=== PATIENT | male | born 1940 | race Caucasian/White ===

== ENCOUNTER → 2020-02-24 | Outpatient (CLI) | payer MEDICARE ==
--- NOTE | 2020-02-24 15:47 | NM ---
EXAMINATION TYPE: NM bone scan whole body DATE OF EXAM: 02/24/2020 COMPARISON: NONE HISTORY: 79-year-old male with history of prostate cancer, C61, follow-up staging TECHNIQUE: Delayed whole-body scanning was performed following the injection of 20.4 mCi Tc 99m MDP. Images acquired 3 hours post injection. FINDINGS: Valenzuela catheter is seen in place with excreted activity along the catheter. Degenerative tracer activi ty noted along the posterior elements at the thoracolumbar junction and upper lumbar spine. Some dege nerative tracer activity at the wrist. No suspicious distribution of activity to suggest osseous meta static disease. IMPRESSION: Some degenerative tracer activity at the thoracolumbar junction and upper lumbar spine. No scintigrap hic evidence for osseous metastatic disease.
== END | disposition home or self-care (01) ==
LOC: RADNMMAIN 10:16
PROVIDERS: ATTEND Urology
DX: M51.36 Other intervertebral disc degeneration, lumbar region (principal); C61 Malignant neoplasm of prostate; Z88.0 Allergy status to penicillin
CPT/HCPCS: 78306; A9503

== ENCOUNTER → 2020-09-21 | Outpatient (CLI) | payer MEDICARE ==
--- NOTE | 2020-09-21 14:46 | NM ---
EXAMINATION TYPE: NM bone scan whole body DATE OF EXAM: 09/21/2020 COMPARISON: NONE HISTORY: Prostate cancer Delayed whole-body scanning was performed following the injection of 24.7 mCi Tc 99m MDP. Images wer e acquired 3.25 hours post injection. FINDINGS: There are multiple scattered hyperintense areas scattered within the bilateral ribs. More elongated u ptake is evident in the region of the lateral right sixth rib within the anterior eighth rib. Finding s can be compatible with metastatic disease There is focal uptake in the region of T12. Milder uptake within pedicles is within the T11 and L1 an d on the left at L2. Findings can be compatible with metastatic disease. COMPARISON: 02/24/2020. Uptake within the thoracolumbar region has increased significantly over the in terval. Uptake within the ribs appears markedly increased in IMPRESSION: 1. New and increasing foci of uptake within the bilateral ribs and thoracolumbar region suspicious fo r developing metastasis.
== END | disposition home or self-care (01) ==
LOC: RADNMMAIN 09:48
PROVIDERS: ATTEND Urology
DX: R94.8 Abnormal results of function studies of other organs and systems (principal); C61 Malignant neoplasm of prostate; Z88.0 Allergy status to penicillin
CPT/HCPCS: 78306; A9503

== ENCOUNTER 2020-10-05 13:11 | Inpatient (IN) | payer MEDICARE ==
[2020-10-05] MEDS ORDERED: HYDROmorphone 2 MG/ML 1 ML SYRINGE IVP PRN (16:54)
[2020-10-05] MEDS ORDERED: ACETAMINOPHEN TAB 325 MG TAB PO PRN (16:54)
[2020-10-05] MEDS ORDERED: HYDROcodone/APAP 5-325MG 1 EACH TAB PO PRN (16:54)
[2020-10-05 17:43] LABS: Basophils % (A) 0 %; Eosinophils # (A) 0.1 k/uL (0-0.7); Eosinophils % (A) 2 %; HCT 39.2 % (39.0-53.0); HGB 12.8 gm/dL (13.0-17.5); Lymphocytes # (A) 0.8 k/uL (1.0-4.8); Lymphocytes % (A) 11 %; MCH 30.8 pg (25.0-35.0); MCHC 32.7 g/dL (31.0-37.0); MCV 94.2 fL (80.0-100.0); Mean Platelet Volume 7.4; Monocytes # (A) 0.6 k/uL (0-1.0); Monocytes % (A) 8 %; Neutrophils # (A) 5.3 k/uL (1.3-7.7); Neutrophils % (A) 77 %; Platelet Count 104 k/uL (150-450); RBC 4.16 m/uL (4.30-5.90); RDW 13.5 % (11.5-15.5)
[2020-10-05] MEDS: DEXTROSE 5%-0.45% NACL 1,000 ML IV SCH (17:49)
[2020-10-05] MEDS: HYDROmorphone 1 MG/ML 1 ML SYRINGE IVP PRN (18:11)
[2020-10-05] MEDS ORDERED: HEPARIN SODIUM,PORCINE 5,000 UNIT/ML 1 ML VIAL SQ SCH (21:00)
--- NOTE | 2020-10-05 21:22 | P.GSHP ---
History of Present Illness H&P Date: 10/05/20 Chief Complaint: Weakness and pain The patient is an 80-year-old white male initially evaluated in January 2020 for urinary retention. His prostate was noted to be hard and nodular at that time. A PSA level was checked and was 4.4. He underwent a prostate ultrasound with biopsies. All biopsies showed poorly differentiated adenocarcinoma of the prostate. He was treated with total androgen blockade and had a very favorable response. The urinary retention resolved, and the PSA level decreased to 0.4 in April 2020. He was treated with radiation therapy in the fall. However, he began to experience decreased appetite and weight loss in August 2020, and the PSA level beata to 9.2. A repeat PSA level two weeks later was 22.8. A bone scan suggested the presence of metastases. The decision was made to treat him with Xtandi, and prior authorization was obtained. However, this past week he has experienced significant weakness, anorexia, and pain. - Review of Systems ROS unobtainable: Reports: due to mental status - Constitutional Constitutional: Reports weakness - Genitourinary (Male) Genitourinary: Reports dysuria Past Medical History Past Medical History: Cancer, GERD/Reflux, Hypertension, Musculoskeletal Disorder, Neurologic Disorder, Prostate Disorder, Renal Disease Additional Past Medical History / Comment(s): Pt diagnosed with prostate cancer approximately in February 2020 and completed radiation/hormone therapy/spouse states cancer has metastasized, recent (past 3 days) pt has had loss of use of his limbs/weakness and pain in abdomin and legs/pt has been unable to get out of bed past 3 days but prior was ambulating with walker and getting into wheelchair, BPH, past nephrolithiasis, leaks urine-wears depends during day and condom cath at night, past presbyesophagus with swallowing difficulty but spouse states no longer a problem and is on a regular diet, chronic low back pain, benign tremors and has been told by some physicians he has parkinson's, diabetic insipidus, past necrotizing fascitis, R lung nodule. 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 Smoking Status: Former smoker - Past Family History Father Family Medical History: Cancer, Myocardial Infarction ([place]) Additional Family Medical History / Comment(s): Prostate cancer. Mother Family Medical History: Cancer Additional Family Medical History / Comment(s): Breast cancer Brother(s) Family Medical History: No Reported History Daughter(s) Family Medical History: No Reported History Son(s) Family Medical History: No Reported History Medications and Allergies Home Medications Medication Instructions Recorded Confirmed Type Gabapentin [Neurontin] 300 mg PO BID 03/04/16 10/05/20 History Omeprazole 20 mg PO DAILY 03/04/16 10/05/20 History amLODIPine [Norvasc] 5 mg PO DAILY 03/04/16 10/05/20 History Alfuzosin HCl [Alfuzosin HCl ER] 10 mg PO HS 10/05/20 10/05/20 History Apixaban [Eliquis] 5 mg PO BID 10/05/20 10/05/20 History Bicalutamide 50 mg PO DAILY 10/05/20 10/05/20 History Escitalopram [Lexapro] 5 mg PO DAILY 10/05/20 10/05/20 History Magnesium Oxide 400 mg PO DAILY 10/05/20 10/05/20 History Mirtazapine 15 mg PO HS 10/05/20 10/05/20 History Sulfamethox-Tmp 800-160Mg [Bactrim 1 tab PO Q12HR 10/05/20 10/05/20 History DS 800-160 mg] risperiDONE 3 mg PO HS 10/05/20 10/05/20 History Allergies Allergy/AdvReac Type Severity Reaction Status Date / Time amantadine Allergy Unknown Verified 10/05/20 18:15 azithromycin [From Zithromax] Allergy Unknown Verified 10/05/20 18:15 cephalexin monohydrate Allergy Unknown Verified 10/05/20 18:15 [From Keflex] ciprofloxacin [From Cipro] Allergy Unknown Verified 10/05/20 18:15 ciprofloxacin HCl Allergy Unknown Verified 10/05/20 18:15 [From Cipro] clarithromycin [From Biaxin] Allergy Unknown Verified 10/05/20 18:15 morphine Allergy Unknown Verified 10/05/20 18:15 NSAIDS (Non-Steroidal Allergy Unknown Verified 10/05/20 18:15 Anti-Inflamma Penicillins Allergy Unknown Verified 10/05/20 18:15 Sulfa (Sulfonamide Allergy Unknown Verified 10/05/20 18:15 Antibiotics) Surgical - Exam - General well developed, well nourished, no distress - Respiratory normal respiratory effort - Abdomen Abdomen: soft, non tender, no guarding, no rigid, no rebound - Genitourinary normal penis with no external lesions, testicles non-tender - Psychiatric oriented to time, oriented to person, oriented to place, speech is normal, memory intact Results - Labs 10/05/20 17:04 Assessment and Plan (1) Malignant neoplasm of prostate Current Visit: Yes Status: Acute Code(s): C61 - MALIGNANT NEOPLASM OF PROSTATE SNOMED Code(s): 048980797 Plan: The patient will be admitted for pain management and assessment. He appears to have diminished motor strength of the left lower extremity, though it is difficult to accurately assess him. Oncology has been consulted.
[2020-10-06 02:15] LABS: African American GFR (CKD) 96.4 (60.0-200.0); Albumin 3.7 g/dL (3.80-4.90); Albumin/Globulin Ratio 1.61 (1.60-3.17); Anion Gap 24.8 mmol/L (4.00-12.00); Calcium 8.8 mg/dL (8.7-10.3); Carbon Dioxide 25.2 mmol/L (21.6-31.8); Globulin 2.3 g/dL (1.6-3.3); Non-African American GFR(CKD) 83.2 (60.0-200.0); Potassium 3.9 mmol/L (3.5-5.5); Total Bilirubin 0.6 mg/dL (0.3-1.2)
[2020-10-06 03:11] LABS: Glucose,Whole Blood 115 mg/dL (75-99)
[2020-10-06] MEDS: HYDROmorphone 1 MG/ML 1 ML SYRINGE IVP PRN ×5 (03:11→23:48)
[2020-10-06] MEDS: DEXTROSE 5%-0.45% NACL 1,000 ML IV SCH ×3 (05:54→20:46)
[2020-10-06] MEDS: APIXABAN 5 MG TAB PO SCH ×2 (08:12→20:04)
[2020-10-06] MEDS: GABAPENTIN 300 MG CAP PO SCH ×2 (08:12→20:04)
[2020-10-06] MEDS: PANTOPRAZOLE 40 MG TABLET PO SCH (08:12)
[2020-10-06] MEDS: amLODIPine 5 MG TAB PO SCH (08:12)
[2020-10-06] MEDS: MAGNESIUM OXIDE 400 MG TAB PO SCH (08:12)
[2020-10-06] MEDS: ESCITALOPRAM 5 MG TAB PO SCH (08:13)
[2020-10-06] MEDS: BICALUTAMIDE 50 MG TAB PO SCH (08:13)
[2020-10-06 10:24] LABS: African American GFR (CKD) >90 (>60 ml/min/1.73 sqM); Anion Gap 4 mmol/L; Blood Urea Nitrogen 18 mg/dL (9-20); Calcium 8.9 mg/dL (8.4-10.2); Carbon Dioxide 30 mmol/L (22-30); Chloride 101 mmol/L (98-107); Glucose 125 mg/dL (74-99); Non-African American GFR(CKD) 84 (>60 ml/min/1.73 sqM); Potassium 4.3 mmol/L (3.5-5.1); Sodium 135 mmol/L (137-145)
[2020-10-06] MEDS ORDERED: ARTIFICIAL TEARS-HYPROMELLOSE DROPS 15 ML BTL BOTH EYES PRN (10:42)
--- NOTE | 2020-10-06 11:46 | P.PN ---
Progress Note - Text Progress Note Date: 10/06/20 The patient is essentially nonverbal. He reports back pain. The recent bone scan showed increased uptake at T11-L2, and the alkaline phosphatase level is elevated. This is all consistent with osseous metastases. The patient has been made DO NOT RESUSCITATE status per his . Oncology has been consulted, but I do not believe the patient is a candidate for chemotherapy. I discussed this with the patient's by phone, and she is in agreement with this. I will continue to make arrangements for him to receive Xtandi as an outpatient. I will cancel the Medical Oncology consult, but a consultation will be requested from Radiation Oncology as he may benefit from radiation therapy to the spine.
[2020-10-06 13:53] VITALS: BMI 22.5
[2020-10-06] MEDS ORDERED: SCOPOLAMINE 1.5MG/72HR PATCH TRANSDERM SCH (20:00)
[2020-10-06] MEDS: MIRTAZAPINE 15 MG TAB PO SCH (20:04)
[2020-10-06] MEDS: risperiDONE 1 MG TAB PO SCH (20:04)
[2020-10-06] MEDS: TAMSULOSIN 0.4 MG CAP.ER.24H PO SCH (20:05)
[2020-10-06] MEDS ORDERED: ACETAMINOPHEN SUPPOSITORY 650 MG SUPP RECTAL PRN (22:32)
[2020-10-07] MEDS ORDERED: DEXAMETHASONE SOD PHOSPHATE 10 MG/ML 1 ML VIAL IV STA (00:04)
[2020-10-07] MEDS ORDERED: LORazepam 2 MG/ML INJ IV STA (00:10)
--- NOTE | 2020-10-07 00:19 | P.CONS ---
History of Present Illness - History of Present Illness This is a pleasant 80 years old male with past medical history of prostate ca ncer since 01/2020, treated with total androgen blockade with initial response before his symptoms recurs. Also he took radiotherapy. Followed later by trending up PSA to 9.2. Repeat PSA showed increased level to 9.2 and this time he presents because of significant generalized weakness and loss of appetite . Patient has been started on XTandi by urologist orthopedic team has been consulted for back pain by urologist primary team . Patient is poor historian, he answers 1 or 2 questions simply and then he stopped answering questions although it looks awake. However patient looks in some distress to do to pain. He has some mild cough. He has a condom Valenzuela catheter. Patient is not eating well oncology research rn has been consulted, staff ordered Magic cup [food], we will add ensure, later on there was concern about aspiration so he was made nothing by mouth and ask for swallow evaluation Vitals looks stable and he is afebrile. CBC is unremarkable. Sodium is mildly low at 134 and he is on D5 half-normal saline at 75 mL/h. We decreased it to 50 mL/h and is going to check his sodium again today. However get her on the evening he developed low-grade temperature of 100.3 and he become hypoxic to 89% on 4 L oxygen via nasal cannula Review of Systems CONSTITUTIONAL: No fever, no malaise, no fatigue. HEENT: No recent visual problems or hearing problems. Denied any sore throat. CARDIOVASCULAR: No orthopnea, PND, no palpitations, no syncope. PULMONARY: No shortness of breath, no cough, no hemoptysis. GASTROINTESTINAL: No diarrhea, no nausea, no vomiting, no abdominal pain. Normoactive bowel sounds. NEUROLOGICAL: No headaches, no weakness, no numbness. HEMATOLOGICAL: Denies any bleeding or petechiae. GENITOURINARY: Denies any burning micturition, frequency, or urgency. MUSCULOSKELETAL/RHEUMATOLOGICAL: Denies any joint pain, swelling, or any muscle pain. ENDOCRINE: Denies any polyuria or polydipsia. Past Medical History Past Medical History: Cancer, GERD/Reflux, Hypertension, Musculoskeletal Diso rder, Neurologic Disorder, Prostate Disorder, Renal Disease Additional Past Medical History / Comment(s): Pt diagnosed with prostate cancer approximately in February 2020 and completed radiation/hormone therapy/spouse states cancer has metastasized, recent (past 3 days) pt has had loss of use of his limbs/weakness and pain in abdomin and legs/pt has been unable to get out of bed past 3 days but prior was ambulating with walker and getting into wheelchair, BPH, past nephrolithiasis, leaks urine-wears depends during day and condom cath at night, past presbyesophagus with swallowing difficulty but spouse states no longer a problem and is on a regular diet, chronic low back pain, benign tremors and has been told by some physicians he has parkinson's, diabetic insipidus, pa st necrotizing fascitis, R lung nodule. 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 Smoking Status: Former smoker - Past Family History Father Family Medical History: Cancer, Myocardial Infarction ([place]) Additional Family Medical History / Comment(s): Prostate cancer. Mother Family Medical History: Cancer Additional Family Medical History / Comment(s): Breast cancer Brother(s) Family Medical History: No Reported History Daughter(s) Family Medical History: No Reported History Son(s) Family Medical History: No Reported History Medications and Allergies Home Medications Medication Instructions Recorded Confirmed Type Gabapentin [Neurontin] 300 mg PO BID 03/04/16 10/05/20 History Omeprazole 20 mg PO DAILY 03/04/16 10/05/20 History amLODIPine [Norvasc] 5 mg PO DAILY 03/04/16 10/05/20 History Alfuzosin HCl [Alfuzosin HCl ER] 10 mg PO HS 10/05/20 10/05/20 History Apixaban [Eliquis] 5 mg PO BID 10/05/20 10/05/20 History Bicalutamide 50 mg PO DAILY 10/05/20 10/05/20 History Escitalopram [Lexapro] 5 mg PO DAILY 10/05/20 10/05/20 History Magnesium Oxide 400 mg PO DAILY 10/05/20 10/05/20 History Mirtazapine 15 mg PO HS 10/05/20 10/05/20 History Sulfamethox-Tmp 800-160Mg [Bactrim 1 tab PO Q12HR 10/05/20 10/05/20 History DS 800-160 mg] risperiDONE 3 mg PO HS 10/05/20 10/05/20 History Allergies Allergy/AdvReac Type Severity Reaction Status Date / Time amantadine Allergy Unknown Verified 10/05/20 18:15 azithromycin [From Zithromax] Allergy Unknown Verified 10/05/20 18:15 cephalexin monohydrate Allergy Unknown Verified 10/05/20 18:15 [From Keflex] ciprofloxacin [From Cipro] Allergy Unknown Verified 10/05/20 18:15 ciprofloxacin HCl Allergy Unknown Verified 10/05/20 18:15 [From Cipro] clarithromycin [From Biaxin] Allergy Unknown Verified 10/05/20 18:15 morphine Allergy Unknown Verified 10/05/20 18:15 NSAIDS (Non-Steroidal Allergy Unknown Verified 10/05/20 18:15 Anti-Inflamma Penicillins Allergy Unknown Verified 10/05/20 18:15 Sulfa (Sulfonamide Allergy Unknown Verified 10/05/20 18:15 Antibiotics) Physical Exam Vitals: Vital Signs Temp Pulse Resp BP Pulse Ox 10/06/20 04:19 98.2 F 89 18 148/74 92 L 10/05/20 21:48 98.0 F 86 19 152/82 93 L 10/05/20 20:00 18 10/05/20 16:26 97.9 F 79 20 178/88 92 L Intake and Output 10/05/20 10/06/20 10/06/20 22:59 06:59 14:59 Intake Total 75 Output Total 300 400 Balance -225 -400 Intake: Intake, IV Titration 75 Amount Dextrose 5%-0.45% NaCl 1, 75 000 ml @ 75 mls/hr IV . [id number] [facility] Rx#:[id number] Oral 0 Output: Urine 300 400 Other: Voiding Method External Catheter External Catheter Weight 67.27 kg -GENERAL: The patient is awake and confused, in some distress due to pain. Generally weak and does not participate in conversation about HEENT: Pupils are round and equally reacting to light. EOMI. No scleral icterus. No conjunctival pallor. Normocephalic, atraumatic. No pharyngeal erythema. No thyromegaly. CARDIOVASCULAR: S1 and S2 present. No murmurs, rubs, or gallops. PULMONARY: Chest is clear to auscultation, no wheezing or crackles. ABDOMEN: Soft, nontender, nondistended, normoactive bowel sounds. No palpable o rganomegaly. MUSCULOSKELETAL: No joint swelling or deformity. EXTREMITIES: No cyanosis, clubbing, or pedal edema. -NEUROLOGICAL: Gross neurological examination did not reveal any focal deficits. However examination is limited by the patient like of cooperation due to his mental status SKIN: No rashes. No petechiae Results CBC & Chem 7: 10/05/20 17:04 10/06/20 09:45 Labs: Abnormal Lab Results - Last 24 Hours (Table) 10/05/20 10/05/20 10/06/20 Range/Units 17:04 17:04 03:10 RBC 4.16 L (4.30-5.90) m/uL Hgb 12.8 L (13.0-17.5) gm/dL Plt Count 104 L (150-450) k/uL Lymphocytes # 0.8 L (1.0-4.8) k/uL Sodium 134 L (135-145) mmol/L Chloride 84 L (96-109) mmol/L Anion Gap 24.80 H (4.00-12.00) mmol/L POC Glucose (mg/dL) 115 H (75-99) mg/dL AST 54 H (14-35) U/L Alkaline Phosphatase 171 H (41-126) U/L Total Protein 6.0 L (6.2-8.2) g/dL Albumin 3.70 L (3.80-4.90) g/dL Assessment and Plan Assessment: Prostate cancer with metastasis to the bone on hormonal therapy and status post radiotherapy. Trending up PSA back pain with loss of energy and generalized weakness and loss of appetite, secondary to above Metabolic encephalopathy secondary to above swallowing difficulty Mild euvolemic hyponatremia Loss of appetite and anorexia with cachexia related to his cancer Plan: This is a pleasant 80 years male with prostate cancer with metastases presents with back pain, metabolic encephalopathy and swallowing difficulty. Continue with pain management. Continue with IV fluid. Then the patient nothing by mouth and ask for swallow evaluation. Patient is followed closely by urology primary team for his prostate cancer and therapy Orthopedic team were consulted for back pain, however on checking the patient by evening time it looks like it hasn't been evaluated. Cephalic going to start the workup with MRI of the spine and start dexamethasone empirically. Also will start clindamycin and sent for blood culture, sputum culturecalcitonin. Patient ALLERGIC to multiple medication limits with antibiotics that can be given to him. We'll order chest x-ray as well. Also we will order CT of the head without contrast Labs and medication were reviewed.. Continue same treatment. Continue with symptomatic treatment. Resume home medication. Monitor lytes and vitals. DVT and GI prophylaxis. Further recommendations depends on the clinical course of the patient DVT prophylaxis: Subcutaneous heparin GI Prophylaxis: Pepcid PT/OT: Pending Prognosis is guarded Patient is no code
--- NOTE | 2020-10-07 00:37 | XR ---
EXAM: XR Chest, 1 View CLINICAL HISTORY: Hypoxia. TECHNIQUE: Frontal view of the chest. COMPARISON: 03/04/2016. FINDINGS: Lungs: Patchy airspace disease in the left mid lower lung zones as well as of the right lung base. Pleural space: Moderate to large left pleural effusion. No pneumothorax. Heart: There is cardiomegaly new since the previous study. Pericardial effusion cannot be excluded. Mediastinum: Unremarkable. Bones/joints: Post surgical changes in the lower cervical spine. Osteopenia. Vasculature: Atherosclerotic disease of the aortic knob. IMPRESSION: 1. Cardiomegaly. 2. Moderate left pleural effusion. Findings suggestive of congestive heart failure. 3. Patchy airspace disease left mid lower lung zones as well as of the right lung base. Differential etiologies include pulmonary edema versus by lateral pneumonias.
[2020-10-07] MEDS: CLINDAMYCIN 300 MG in DEXTROSE 5% IN WATER 50 ML IVPB SCH ×8 (00:42→17:16)
--- NOTE | 2020-10-07 01:40 | CT ---
EXAM: CT Head Without Intravenous Contrast CLINICAL HISTORY: Confusion. TECHNIQUE: Axial computed tomography images of the head/brain without intravenous contrast. CTDI is 57.40 mGy and DLP is 1100.20 mGy-cm. This CT exam was performed using one or more of the following dose reduction techniques: automated exposure control, adjustment of the mA and/or kV according to patient size, and/or use of iterative reconstruction technique. COMPARISON: No previous study. FINDINGS: Brain: There is a 2.7 x 2.3 cm hypodensity in the right parietal lobe worrisome for acute/subacute infarction. Magnetic resonance imaging of the brain with diffusion-weighted sequences highly advised to follow. No abnormal extra-axial collection. No hemorrhage. Ventricles: There is prominence of the ventricular system, cortical sulci, basilar cisterns, compatible with age related atrophy. Bones/joints: Calvarium is within normal limits. No acute fracture. Soft tissues: Unremarkable. Vasculature: Atherosclerotic disease. Sinuses: Mild to moderate chronic ethmoid and left maxillary sinusitis. Mastoid air cells: Mastoid air cells are well pneumatized. IMPRESSION: 1. Abnormal hypodensity right occipital lobe worrisome for acute/subacute infarction of the right occipital lobe. 2. Magnetic resonance imaging of the brain with diffusion-weighted sequences is advised to follow. 3. Age-related atrophy and small vessel disease of aging. <MYCVCSECTION> Communications: 10/07/20 01:56 Call Doctor Regarding Stroke, called Dr. Daly on 10/07 01:56 (-05:00)
[2020-10-07] MEDS ORDERED: HEPARIN SODIUM,PORCINE 5,000 UNIT/ML 1 ML VIAL IV PRN (02:13)
[2020-10-07] MEDS ORDERED: HEPARIN SOD,PORK IN 0.45% NACL 25,000 UNIT in 0.45% NACL 1 250ML.BAG IV SCH (02:15)
[2020-10-07] MEDS ORDERED: FUROSEMIDE 10 MG/ML 4 ML VIAL IV STA (02:36)
[2020-10-07 03:12] LABS: HCT 39.2 % (39.0-53.0); HGB 13.2 gm/dL (13.0-17.5); INR 1.3 (<1.2); MCH 31.7 pg (25.0-35.0); MCHC 33.8 g/dL (31.0-37.0); MCV 93.7 fL (80.0-100.0); Mean Platelet Volume 7.4; RBC 4.18 m/uL (4.30-5.90); WBC 8.8 k/uL (3.8-10.6)
[2020-10-07 03:13] LABS: Prothrombin Time 13.5 sec (9.0-12.0)
[2020-10-07 05:33] LABS: Glucose,Whole Blood 179 mg/dL (75-99)
[2020-10-07 05:43] LABS: Band Neutrophils % 27 %; Lymphocytes # (M) 0.35 k/uL (1.0-4.8); Monocytes # (M) 0.18 k/uL (0-1.0); Neutrophils % (M) 67 %; Nucleated Red Blood Cells 0 /100 WBC (0-0); Total Cells Counted 200
[2020-10-07 05:44] LABS: Anisocytosis (M) Present; Polychromasia Present
[2020-10-07 05:45] LABS: Platelet Count 98 k/uL (150-450)
--- NOTE | 2020-10-07 06:04 | CT ---
EXAM: CT Head Without Intravenous Contrast CLINICAL HISTORY: ITS.REASON CT Reason: Neuro deficit, acute, stroke suspected TECHNIQUE: Axial computed tomography images of the head/brain without intravenous contrast. CTDI is 57.40 mGy and DLP is 1012.70 mGy-cm. This CT exam was performed using one or more of the following dose reduction techniques: automated exposure control, adjustment of the mA and/or kV according to patient size, and/or use of iterative reconstruction technique. COMPARISON: No relevant prior studies available. FINDINGS: Brain: No hemorrhage or mass effect. Hypodensity in the right parietal/occipital lobe. Chronic left frontal infarct. Ventricles: No hydrocephalus. Bones/joints: Unremarkable. Soft tissues: Unremarkable. Sinuses: Unremarkable. Mastoid air cells: Clear. IMPRESSION: Hypodensity in the right parietal/occipital lobe. Likely subacute infarct.
[2020-10-07 06:19] LABS: INR 1.4 (<1.2); Prothrombin Time 13.9 sec (9.0-12.0)
[2020-10-07 06:21] LABS: HCT 43.1 % (39.0-53.0); HGB 13.7 gm/dL (13.0-17.5); MCH 30.2 pg (25.0-35.0); MCHC 31.8 g/dL (31.0-37.0); MCV 94.8 fL (80.0-100.0); Mean Platelet Volume 7.7; RBC 4.55 m/uL (4.30-5.90); RDW 13.3 % (11.5-15.5); WBC 11.7 k/uL (3.8-10.6)
[2020-10-07 06:29] LABS: ALT 26 U/L (4-49); AST 58 U/L (17-59); African American GFR (CKD) >90 (>60 ml/min/1.73 sqM); Albumin 3.6 g/dL (3.5-5.0); Alkaline Phosphatase 178 U/L (38-126); Anion Gap 8 mmol/L; Blood Urea Nitrogen 24 mg/dL (9-20); Calcium 9.6 mg/dL (8.4-10.2); Carbon Dioxide 31 mmol/L (22-30); Chloride 100 mmol/L (98-107); Globulin 3.5 g/dL; Glucose 197 mg/dL (74-99); Non-African American GFR(CKD) 78 (>60 ml/min/1.73 sqM); Potassium 4.6 mmol/L (3.5-5.1); Sodium 139 mmol/L (137-145); Total Bilirubin 1.1 mg/dL (0.2-1.3); Total Protein 7.1 g/dL (6.3-8.2)
[2020-10-07 06:32] LABS: Platelet Count 98 k/uL (150-450)
[2020-10-07] MEDS: HYDROmorphone 1 MG/ML 1 ML SYRINGE IVP PRN (06:46)
[2020-10-07] MEDS: DEXAMETHASONE SOD PHOSPHATE 4 MG/ML 1 ML VIAL IV SCH ×3 (07:22→17:16)
[2020-10-07] MEDS: amLODIPine 5 MG TAB PO SCH (08:27)
[2020-10-07] MEDS: ESCITALOPRAM 5 MG TAB PO SCH (08:28)
[2020-10-07] MEDS: BICALUTAMIDE 50 MG TAB PO SCH (08:28)
[2020-10-07] MEDS: MAGNESIUM OXIDE 400 MG TAB PO SCH (08:28)
[2020-10-07] MEDS: PANTOPRAZOLE 40 MG TABLET PO SCH (08:28)
[2020-10-07] MEDS: GABAPENTIN 300 MG CAP PO SCH ×2 (08:28→20:52)
[2020-10-07 08:40] LABS: Band Neutrophils % 16 %; Eosinophils # (M) 0.12 k/uL (0-0.7); Lymphocytes # (M) 1.05 k/uL (1.0-4.8); Monocytes # (M) 1.05 k/uL (0-1.0); Neutrophils % (M) 65 %; Nucleated Red Blood Cells 0 /100 WBC (0-0); Total Cells Counted 100
[2020-10-07] MEDS ORDERED: FUROSEMIDE 10 MG/ML 4 ML VIAL IV SCH (09:00)
--- NOTE | 2020-10-07 09:22 | P.PN ---
Subjective This is a pleasant 80 years old male with past medical history of prostate cancer since 01/2020, treated with total androgen blockade with initial response before his symptoms recurs. Also he took radiotherapy. Followed later by trending up PSA to 9.2. Repeat PSA showed increased level to 9.2 and this time he presents because of significant generalized weakness and loss of appetite . Patient has been started on XTandi by urologist orthopedic team has been consulted for back pain by urologist primary team . Patient is poor historian, he answers 1 or 2 questions simply and then he stopped answering questions although it looks awake. However patient looks in some distress to do to pain. He has some mild cough. He has a condom Valenzuela cat heter. Patient is not eating well wet inspector optical glass has been consulted, staff ordered Magic cup [food], we will add ensure, later on there was concern about aspiration so he was made nothing by mouth and ask for swallow evaluation Vitals looks stable and he is afebrile. CBC is unremarkable. Sodium is mildly low at 134 and he is on D5 half-normal saline at 75 mL/h. We decreased it to 50 mL/h and is going to check his sodium again today. However get her on the evening he developed low-grade temperature of 100.3 and he become hypoxic to 89% on 4 L oxygen via nasal cannula 10/07/2020 Patient is the common less responsive than yesterday, yesterday he was answered me 1 or 2 words and then stops today he is not answering any words, he looks at me for short time and then there is awake, he does not follow commands only one time when asking him to open his mouth he did but he did not follow any other commands. He does not move in his upper or lower extremity however he is holding to napkins in his 2 lengths. He is somewhat tachypneic. He had a fever yesterday of 100.3, he requires 4-5 L of oxygen to keep saturation I want 92-94%. WBC is 11.7 K, INR 1.4. Troponin is elevated Chest x-ray showing cardiomegaly, moderate left pleural effusion, patchy airspace disease left mid lower lung zones as well as of the right lung base. And due to pulmonary edema versus bilateral pneumonia Yesterday CT of the brain showed 2.7 x 2.3 hypodensity in the right parietal lobe worrisome for acute/subacute infarction, the radiologist called me and the staff Dr. the Ms. Gregory and she does not want him to be transferred to another facility as there is no neurologist coverage in this hospital over the weekend Later on during the night the nurse noted that his left pupil is smaller than the right pupil so, stroke was called and another CT of the brain was ordered which showed no change, they spoke with the neurologist on-call Dr. Boucher recommended EEG. This morning I talked to the by myself over the phone Ms. Bri Stiles and I discussed the case with her and right away she told me she wants him to be no code and comfort care however she wanted to come and visit him and then make the final decision Because of that MRI of the brain was held, MRI of the spine was held as well as EEG. And I discussed with the bedside nurse Objective - Vital Signs Vital signs: Vital Signs Temp 97.4 F L 10/07/20 08:39 Pulse 74 10/07/20 08:39 Resp 20 10/07/20 08:39 BP 156/80 10/07/20 08:39 Pulse Ox 92 L 10/07/20 08:39 Intake & Output 10/06/20 10/07/20 10/07/20 18:59 06:59 18:59 Intake Total 600 Balance 600 Weight 67.27 kg Intake: Intake, IV Titration 600 Amount Dextrose 5%-0.45% NaCl 1, 600 000 ml @ 50 mls/hr IV . Q20H [facility] Rx#:[id number] Other: Voiding Method External Catheter External Catheter # Voids 2 - Exam GENERAL: The patient is awake, opens eyes spontaneously, does not follow commands. He does not answer and does not talk. HEENT: Pupils are round and equally reacting to light. EOMI. No scleral icterus. No conjunctival pallor. Normocephalic, atraumatic. No pharyngeal erythema. No thyromegaly. CARDIOVASCULAR: S1 and S2 present. No murmurs, rubs, or gallops. -PULMONARY: Chest is clear to auscultation, no wheezing or crackles. Tachypneic with bilateral basal crepitation ABDOMEN: Soft, nontender, nondistended, normoactive bowel sounds. No palpable organomegaly. MUSCULOSKELETAL: No joint swelling or deformity. EXTREMITIES: No cyanosis, clubbing, or pedal edema. -NEUROLOGICAL: Examination is limited by the patient change in mental status. He is a AAO0. Cranial nerves are grossly intact. Difficult to assess the motor function however is using his hands to hold towels in each side. Patient is not moving his lower extremity. And he is confused. Meningeal signs are absent SKIN: No rashes. no petechiae. - Labs CBC & Chem 7: 10/07/20 05:38 10/07/20 05:38 Labs: Abnormal Lab Results - Last 24 Hours (Table) 10/06/20 10/07/20 10/07/20 Range/Units 09:45 02:45 02:45 WBC (3.8-10.6) k/uL RBC 4.18 L (4.30-5.90) m/uL Plt Count 98 L (150-450) k/uL Neutrophils # (Manual) 8.20 H (1.3-7.7) k/uL Lymphocytes # (Manual) 0.35 L (1.0-4.8) k/uL Monocytes # (Manual) (0-1.0) k/uL PT 13.5 H (9.0-12.0) sec INR 1.3 H (<1.2) Sodium 135 L (137-145) mmol/L Carbon Dioxide (22-30) mmol/L BUN (9-20) mg/dL Glucose 125 H (74-99) mg/dL POC Glucose (mg/dL) (75-99) mg/dL Alkaline Phosphatase (38-126) U/L Troponin I (0.000-0.034) ng/mL 10/07/20 10/07/20 10/07/20 Range/Units 05:24 05:38 05:38 WBC 11.7 H (3.8-10.6) k/uL RBC (4.30-5.90) m/uL Plt Count 98 L (150-450) k/uL Neutrophils # (Manual) 9.40 H (1.3-7.7) k/uL Lymphocytes # (Manual) (1.0-4.8) k/uL Monocytes # (Manual) 1.05 H (0-1.0) k/uL PT 13.9 H (9.0-12.0) sec INR 1.4 H (<1.2) Sodium (137-145) mmol/L Carbon Dioxide (22-30) mmol/L BUN (9-20) mg/dL Glucose (74-99) mg/dL POC Glucose (mg/dL) 179 H (75-99) mg/dL Alkaline Phosphatase (38-126) U/L Troponin I (0.000-0.034) ng/mL 10/07/20 10/07/20 Range/Units 05:38 05:38 WBC (3.8-10.6) k/uL RBC (4.30-5.90) m/uL Plt Count (150-450) k/uL Neutrophils # (Manual) (1.3-7.7) k/uL Lymphocytes # (Manual) (1.0-4.8) k/uL Monocytes # (Manual) (0-1.0) k/uL PT (9.0-12.0) sec INR (<1.2) Sodium (137-145) mmol/L Carbon Dioxide 31 H (22-30) mmol/L BUN 24 H (9-20) mg/dL Glucose 197 H (74-99) mg/dL POC Glucose (mg/dL) (75-99) mg/dL Alkaline Phosphatase 178 H (38-126) U/L Troponin I 1.020 H* (0.000-0.034) ng/mL Assessment and Plan Assessment: Acute/subacute stroke, with 2.7 x 2.3 hypodensity in the right parietal lobe Elevated troponin, possible non-STEMI Acute CHF (unknown ejection fraction) versus bilateral aspiration pneumonia Moderate left pleural effusion Prostate cancer with metastasis to the bone on hormonal therapy and status post radiotherapy. 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 Also acute/subacute stroke and high troponin concerning for non-STEMI. Continue with pain management. Continue with IV fluid. Then the patient nothing by mouth and ask for swallow evaluation. Patient is followed closely by urology primary team for his prostate cancer and therapy Continue with clindamycin. Hold an MRI of the brain and of the spine and EEG for now as the wants to come and see him and may decide for comfort care today or tomorrow with his PCP Dr. Ferguson Labs and medication were reviewed.. Continue same treatment. Continue with symptomatic treatment. Resume home medication. Monitor lytes and vitals. DVT and GI prophylaxis. Further recommendations depends on the clinical course of the patient DVT prophylaxis: Subcutaneous heparin GI Prophylaxis: Pepcid Prognosis is guarded Patient is no code, confirmed and requested by is considering comfort care
--- NOTE | 2020-10-07 09:26 | P.PN ---
Progress Note - Text Progress Note Date: 10/07/20 The patient is less responsive today and computed tomography scan shows that he has sustained a right-sided CVA. Dr. Daly spoke with the patient's , who indicated that the family only desires comfort care at this time.
[2020-10-07] MEDS ORDERED: hydrALAZINE HCL 20 MG/ML 1 ML VIAL IVP STA (18:19)
[2020-10-07] MEDS ORDERED: hydrALAZINE HCL 20 MG/ML 1 ML VIAL IVP PRN (18:32)
[2020-10-07] MEDS: MORPHINE SULFATE 2 MG/ML SYRINGE IVP PRN ×2 (19:26→22:36)
[2020-10-07] MEDS: risperiDONE 1 MG TAB PO SCH (20:52)
[2020-10-07] MEDS: MIRTAZAPINE 15 MG TAB PO SCH (20:52)
[2020-10-07] MEDS: TAMSULOSIN 0.4 MG CAP.ER.24H PO SCH (20:53)
[2020-10-07] MEDS: DEXTROSE 5%-0.45% NACL 1,000 ML IV SCH (22:37)
[2020-10-08] MEDS: DEXAMETHASONE SOD PHOSPHATE 4 MG/ML 1 ML VIAL IV SCH ×3 (00:05→11:02)
[2020-10-08] MEDS: CLINDAMYCIN 300 MG in DEXTROSE 5% IN WATER 50 ML IVPB SCH ×6 (00:05→11:02)
[2020-10-08] MEDS: HYDROmorphone 1 MG/ML 1 ML SYRINGE IVP PRN ×3 (00:19→22:50)
[2020-10-08] MEDS: HYDROmorphone 0.5 MG/0.5 ML SYRINGE IVP PRN ×2 (05:09→09:13)
[2020-10-08 05:22] VITALS: BP 150/67; PULSE 63; RESP 16; TEMP 97.5
[2020-10-08 05:39] LABS: Basophils % (A) 0 %; Eosinophils % (A) 0 %; HCT 37.9 % (39.0-53.0); HGB 12.4 gm/dL (13.0-17.5); Lymphocytes # (A) 0.4 k/uL (1.0-4.8); Lymphocytes % (A) 4 %; MCH 30.3 pg (25.0-35.0); MCHC 32.6 g/dL (31.0-37.0); MCV 92.8 fL (80.0-100.0); Monocytes # (A) 0.5 k/uL (0-1.0); Monocytes % (A) 5 %; Neutrophils % (A) 89 %; Platelet Count 119 k/uL (150-450); RBC 4.09 m/uL (4.30-5.90); RDW 13.1 % (11.5-15.5)
--- NOTE | 2020-10-08 08:07 | P.PN ---
Subjective Progress Note Date: 10/08/20 The patient is in the hospital with failure to thrive due to metastatic prostate cancer. the patient had a recent stroke. The patient is a no code and is going to be discharged home with hospice per the family requests. Objective - Vital Signs Vital signs: Vital Signs Temp 97.5 F L 10/08/20 05:00 Pulse 63 10/08/20 05:00 Resp 16 10/08/20 05:00 BP 150/67 10/08/20 05:00 Pulse Ox 92 L 10/08/20 05:00 Intake & Output 10/07/20 10/08/20 10/08/20 18:59 06:59 18:59 Intake Total 600 600 Output Total 175 Balance 600 425 Intake: Intake, IV Titration 600 600 Amount Clindamycin 300 mg In 100 Dextrose 5% in Water 50 ml @ 50 mls/hr IVPB Q6HR [facility] Rx#:[id number] Dextrose 5%-0.45% NaCl 1, 600 500 000 ml @ 50 mls/hr IV . Q20H [facility] Rx#:[id number] Oral 0 Output: Urine 175 Other: Voiding Method External Catheter External Catheter # Voids 1 2 - Labs CBC & Chem 7: 10/08/20 04:57 10/07/20 05:38 Labs: Abnormal Lab Results - Last 24 Hours (Table) 10/07/20 10/07/20 10/08/20 Range/Units 00:20 05:38 04:57 RBC 4.09 L (4.30-5.90) m/uL Hgb 12.4 L (13.0-17.5) gm/dL Hct 37.9 L (39.0-53.0) % Plt Count 98 L 119 L (150-450) k/uL Neutrophils # 9.0 H (1.3-7.7) k/uL Neutrophils # (Manual) 9.40 H (1.3-7.7) k/uL Lymphocytes # 0.4 L (1.0-4.8) k/uL Monocytes # (Manual) 1.05 H (0-1.0) k/uL Procalcitonin 0.28 H (0.02-0.09) ng/mL Microbiology - Last 24 Hours (Table) 10/07/20 00:20 Blood Culture - Preliminary Blood No Growth after 24 hours
[2020-10-08] MEDS: BICALUTAMIDE 50 MG TAB PO SCH (09:07)
[2020-10-08] MEDS: amLODIPine 5 MG TAB PO SCH (09:07)
[2020-10-08] MEDS: ESCITALOPRAM 5 MG TAB PO SCH (09:07)
[2020-10-08] MEDS: MAGNESIUM OXIDE 400 MG TAB PO SCH (09:07)
[2020-10-08] MEDS: GABAPENTIN 300 MG CAP PO SCH (09:07)
[2020-10-08] MEDS: PANTOPRAZOLE 40 MG TABLET PO SCH (09:08)
--- NOTE | 2020-10-08 13:22 | CDI ---
Documentation Clarification Form Date: 10/08/2020 CDS: Jigna Jauregui, CCS, CCDS Admit Date: 10/05/20 15:11 Patient Name: Patrick Stiles I Discharge Date: ATTENTION: The Clinical Documentation Specialists (CDI) and [facility] Coding Staff appreciate your assistance in clarifying documentation. Please respond to the clarification below the line at the bottom and electronically sign. The CDI & [facility] Coding staff will review the response and follow-up if needed. Please note: Queries are made part of the Legal Health Record. If you have any questions, please contact the author of this message via ITS. Dear Dr. Monroy Sheet: Per the 10/05 History & Physical, the patient has had a decreased appetite and weight loss since August 2020. Per the 10/06 Medical Management Consult: "Loss of appetite and anorexia with cachexia related to his cancer." Per the 10/08 Urology Progress Note: "The patient is in the hospital with failure to thrive due to metastatic prostate cancer, the patient had a recent stroke." History/Risk Factors: Prostate Cancer previously treated with radiation/hormone therapy, Metastasis to the bone, BPH with past urinary retention, Urine incontinence, Kidney stones, Presbyesophagus with swallowing difficulty, Chronic Low Back Pain, Diabetic Insipidus, Right lung nodule, GERD, Hypertension, CHF EF unknown, Former smoker. Clinical Indicators: Admit to Urology on 10/05 with weakness and pain with history of Prostate Cancer previously treated with radiation & hormone treatments but with rising PSA, decreased appetite & weight loss since August 2020. 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 Underweight, Mild Temporal Muscle Wasting. Oral supplements: Ensure enlive TID. [place] Body: 96%, Wt 67.27 kg, IBW 70 kg. Ht 5 ft 8 in. Treatment: IV Dextrose/Na Cl, IV Dilaudid, Heparin sq. 10/06 Scopolamine patch, Tylenol Suppostory, IV Decadron. 10/07: IV Heparin, IV Lasix, IV Morhpine. 10/06 Code status DNR & Comfort Care In your professional opinion, can you please clarify if these findings signify one of the following conditions? Mild Protein-Calorie Malnutrition Moderate Protein-Calorie Malnutrition Other condition, please specify Unable to determine (Last Revision: March 2019) Mild Protein-Calorie Malnutrition MTDD
[2020-10-09] MEDS: HYDROmorphone 1 MG/ML 1 ML SYRINGE IVP PRN ×4 (05:03→16:49)
--- NOTE | 2020-10-09 07:29 | P.PN ---
Subjective Progress Note Date: 10/09/20 The patient has advanced metastatic prostate cancer. He is failing significantly. He is waiting discharged home with hospice care. Objective - Vital Signs Vital signs: Vital Signs Temp 97.5 F L 10/08/20 05:00 Pulse 63 10/08/20 05:00 Resp 16 10/09/20 05:00 BP 150/67 10/08/20 05:00 Pulse Ox 92 L 10/08/20 18:02 Intake & Output 10/08/20 10/09/20 10/09/20 18:59 06:59 18:59 Intake Total 65 0 Balance 65 0 Intake: Oral 65 0 Other: Voiding Method External Catheter Diaper Incontinent # Voids 1 2 - Labs CBC & Chem 7: 10/08/20 04:57 10/07/20 05:38 Labs: Microbiology - Last 24 Hours (Table) 10/07/20 00:20 Blood Culture - Preliminary Blood No Growth after 48 hours
--- NOTE | 2020-10-09 09:53 | P.DS ---
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 He was admitted with increased pain and weakness. He was found to have sustained a right-sided stroke. Given his poor performance status, he is not a candidate for chemotherapy and the family elected to enter Hospice care rather than pursue other treatment. Arrangements were made and he was thus discharged under Hospice care. Patient Condition at Discharge: Poor Plan - Discharge Summary Discharge Rx Participant: No New Discharge Prescriptions: No Action amLODIPine [Norvasc] 5 mg PO DAILY Omeprazole 20 mg PO DAILY Gabapentin [Neurontin] 300 mg PO BID risperiDONE 3 mg PO HS Sulfamethox-Tmp 800-160Mg [Bactrim DS 800-160 mg] 1 tab PO Q12HR Apixaban [Eliquis] 5 mg PO BID Alfuzosin HCl [Alfuzosin HCl ER] 10 mg PO HS Magnesium Oxide 400 mg PO DAILY Bicalutamide 50 mg PO DAILY Escitalopram [Lexapro] 5 mg PO DAILY Mirtazapine 15 mg PO HS Discharge Medication List Gabapentin [Neurontin] 300 mg PO BID 03/04/16 [History] Omeprazole 20 mg PO DAILY 03/04/16 [History] amLODIPine [Norvasc] 5 mg PO DAILY 03/04/16 [History] Alfuzosin HCl [Alfuzosin HCl ER] 10 mg PO HS 10/05/20 [History] Apixaban [Eliquis] 5 mg PO BID 10/05/20 [History] Bicalutamide 50 mg PO DAILY 10/05/20 [History] Escitalopram [Lexapro] 5 mg PO DAILY 10/05/20 [History] Magnesium Oxide 400 mg PO DAILY 10/05/20 [History] Mirtazapine 15 mg PO HS 10/05/20 [History] Sulfamethox-Tmp 800-160Mg [Bactrim DS 800-160 mg] 1 tab PO Q12HR 10/05/20 [ History] risperiDONE 3 mg PO HS 10/05/20 [History] Discharge Disposition: HOME WITH HOSPICE
== END 2020-10-09 19:30 | disposition hospice, home (50) | DRG 947 ==
LOC: 5NMEDONC 15:11
PROVIDERS: ADMIT Urology; ATTEND Urology
DX: G89.3 Neoplasm related pain (acute) (chronic) (principal); G93.41 Metabolic encephalopathy; J69.0 Pneumonitis due to inhalation of food and vomit; I21.4 Non-ST elevation (NSTEMI) myocardial infarction; I63.89 Other cerebral infarction; C79.51 Secondary malignant neoplasm of bone; E23.2 Diabetes insipidus; E44.1 Mild protein-calorie malnutrition; R64 Cachexia; I11.0 Hypertensive heart disease with heart failure; I50.9 Heart failure, unspecified; C61 Malignant neoplasm of prostate; G20 Parkinson's disease; R62.7 Adult failure to thrive; R09.02 Hypoxemia; Z66 Do not resuscitate; Z51.5 Encounter for palliative care; R29.714 NIHSS score 14; R13.10 Dysphagia, unspecified; N40.1 Benign prostatic hyperplasia with lower urinary tract symptoms; N39.498 Other specified urinary incontinence; R33.8 Other retention of urine; M54.5 Low back pain; Z68.22 Body mass index [BMI] 22.0-22.9, adult; R91.1 Solitary pulmonary nodule; K21.9 Gastro-esophageal reflux disease without esophagitis; Z79.01 Long term (current) use of anticoagulants; Z79.899 Other long term (current) drug therapy; Z87.891 Personal history of nicotine dependence; Z87.442 Personal history of urinary calculi; Z92.3 Personal history of irradiation; Z90.49 Acquired absence of other specified parts of digestive tract; Z90.89 Acquired absence of other organs; Z87.19 Personal history of other diseases of the digestive system; Z89.021 Acquired absence of right finger(s); Z87.39 Personal history of other diseases of the musculoskeletal system and connective tissue; Z98.890 Other specified postprocedural states; Z88.6 Allergy status to analgesic agent; Z88.1 Allergy status to other antibiotic agents; Z88.5 Allergy status to narcotic agent; Z88.0 Allergy status to penicillin; Z88.2 Allergy status to sulfonamides; Z82.49 Family history of ischemic heart disease and other diseases of the circulatory system; Z80.42 Family history of malignant neoplasm of prostate; Z80.3 Family history of malignant neoplasm of breast
CPT/HCPCS: 70450; 71045; 80048; 80053; 84145; 84484; 85025; 85610; 85730; 87040